=== PATIENT | female | born 1965 | race Caucasian/White ===

== ENCOUNTER → 2016-11-17 | Outpatient (CLI) | payer OTHER ==
[~2016-11-17] MED LIST: BACLOFEN10 MG PO; BENTYL20 M1 PO; FERRO-TIME325 MG PO; FLEXERIL10 M1 PO; FLEXERIL10 MG PO; IBUPROFEN800 MG; IBUPROFEN800 MG PO; KEFLEX PO; LORTAB 5/500 TA1 TA1 PO; NAPROSYN500 MG PO; NEURONTIN300 MG PO; OXYCODON-ACETA1 EAC1 PO; PREDNISONE PO; TOPAMAX PO; TOPAMAX50 MG DOB; TYLOX 5/500 CAP1 CAP PO; VALTREX500 MG PO; ZITHROMAX; ZOLOFT100 MG PO; ZYRTEC10 M2 PO
--- NOTE | ~2016-11-17 | MY29 ---
[facility] A Service of [facility] RADIOLOGY TEXT RESULTS PATIENT: FLORIDALMA WAGNER LOCATION: [facility] : 65 UNIT #: [id number] AGE: [address]: Ashleigh Lloyd APRN SEX: F ORDER DR: [id number] [facility] [address] [facility]. [place], [place] [address] [id number] O MR#: [id number] #: [id number] NAME: FLORIDALMA WAGNER : 1965 SEX: F STUDY DATE/TIME: 11/17/2016 13:26 UNIT: [facility] ROOM: STUDY DESCRIPTION: MY VASQUEZ SCREENING W/ CAD BILAT Attending Physician: Ashleigh Lloyd A.P.R.N. Referring Physician: Adela James Aprn Ordering Physician: Sugar HolcombPPacoRAbigail Primary Care Physician: Ashleigh Lloyd A.P.R.N. MEDICAL IMAGING REPORT This report is preliminary unless electronic signature is present EXAM Screening mammogram 11/17. INDICATIONS 51 year old. No personal or family history of breast cancer. No current complaints. FINDINGS Routine digital screening views of both breasts were obtained. Study was reviewed with an FDA-approved CAD device. Comparison made with 11/13/2009. Breast parenchyma shows scattered fibroglandular densities. There are no suspicious masses or microcalcifications. IMPRESSION Negative mammogram. Routine screen 1 year recommended. Patients over the age of 40 are entered into a reminder system with target due date for the next mammogram. A result letter will be sent to the patient. BIRADS: 1 Negative. Dictated by... Guero Mcgowan Jr., M.D. THIS IS AN ELECTRONICALLY VERIFIED REPORT Guero Mcgowan Jr., M.D. at 11/18/2016 4:38 PM MICHAEL/brinda TD: 11/18/2016 07:17 JOB #: [id number] [facility] A Service of [facility] RADIOLOGY TEXT RESULTS PATIENT: FLORIDALMA WAGNER LOCATION: [facility] : 65 UNIT #: [id number] AGE: [address]: Ashleigh Lloyd APRN SEX: F ORDER DR: MEDICAL IMAGING REPORT Page 1 of 1 COPY
== END | disposition home or self-care (01) ==
LOC: CWCC 11-10 12:30
DX: Z12.31 Encounter for screening mammogram for malignant neoplasm of breast (principal)
CPT/HCPCS: G0202